=== PATIENT | female | born 1935 | race Caucasian/White ===

== ENCOUNTER 2019-04-19 | Emergency (ER) | payer MEDICARE ==
[~2019-04-19] MED LIST: AMLODIPINE10 MG PO; CARVEDILOL25 MG PO; GLIPIZIDE5 M2 PO; KEFLEX500 MG PO; LISINOP/HCTZ1 TA1 PO; OXYBUTYNIN10 MG PO; SIMVASTATIN80 MG PO
[2019-04-19] MEDS ORDERED: LASIX 40 MG TAB40 MG PO (09:29)
[2019-04-19 09:49] LABS: HEMATOCRIT 34.1 % (37.0-47.0); HEMOGLOBIN 11.6 g/dl (12.0-16.0); IMMATURE GRANULOCYTES 0.6 % (0.0-5.0); MEAN CORPUSCULAR HGB 33.6 pG CALC (26.0-32.0); NEUT# 8.61 thou/uL (2.00-7.15); RED BLOOD COUNT 3.45 mill/uL (4.20-5.60); RED CELL DISTRI WIDTH 14.3 % (11.5-15.5)
[2019-04-19 09:50] LABS: MEAN CELL VOLUME 98.8 fL CALC (80.0-100.0)
[2019-04-19 10:03] LABS: ANION GAP 14 (6-22 (CALC)); BUN 27 mg/dL (8-23); BUN/CREATININE RATIO 29 (12-20 (CALC)); CARBON DIOXIDE 24 mmol/l (22-30); CHLORIDE 105 mmol/l (95-108); CREATININE 0.9 mg/dL (0.5-1.0); GFR 60 ML/MIN (>=60 (CALC)); GFR FOR AFR.AMER. > 60 ML/MIN (>=60 (CALC)); POTASSIUM 3.5 mmol/l (3.5-5.1); SODIUM 140 mmol/l (137-146)
== END 2019-04-19 12:05 ==
PROVIDERS: Family Medicine
DX: S72.141A Displaced intertrochanteric fracture of right femur, initial encounter for closed fracture (principal); I11.0 Hypertensive heart disease with heart failure; I50.9 Heart failure, unspecified; E11.9 Type 2 diabetes mellitus without complications; W18.39XA Other fall on same level, initial encounter; Y92.009 Unspecified place in unspecified non-institutional (private) residence as the place of occurrence of the external cause; Z79.84 Long term (current) use of oral hypoglycemic drugs